=== PATIENT | male | born 1945 | race Caucasian/White ===

== ENCOUNTER 2022-08-18 05:06 | Emergency (ER) | payer MEDICARE, OTHER, SELFPAY ==
[2022-08-18 05:07] VITALS: BP 94/57; PULSE 81; RESP 18; TEMP 36.6; O2SAT 95; BMI 40.4
--- NOTE | 2022-08-18 05:18 | ED.VIS.GI ---
HPI HPI - GI History of Present Illness Chief Complaint: GI Bleed Narrative Narrative: 77-year-old male, past medical history of atrial fibrillation on Xarelto, had colonoscopy performed approximately [address] Orona at [facility]. At that time, 2 polyps were removed. He continued his Xarelto through the colonoscopy and afterwards as directed by his surgeon. He states that everything was fine until yesterday. He noticed a small amount of blood mixed with stool. This morning, he had to bloody bowel movements, stating the blood was mixed with mucus. He felt lightheaded yesterday. He took his blood pressure and it was low in the 80s systolically. He denies any chest pain or shortness of breath. He denies other bleeding diathesis. He states that this is happened to him previously with his last 2 colonoscopies. He had GI bleeding, and he was admitted and spent 3 days at [facility] where he continued his Xarelto, but only ate and drink clear liquids until the bleeding stopped. [facility] Medical History (Updated 08/18/22 @ 06:43 by Yordy Braun MD) Atrial fibrillation Hypertension Prostate cancer Home Medications allopurinol 200 mg tablet 200 mg PO DAILY 08/18/22 [History Last Taken Unknown] bisoprolol fumarate 5 mg tablet 2.5 mg PO DAILY 08/18/22 [History Last Taken Unknown] cholecalciferol (vitamin D3) 125 mcg (5,000 unit) tablet 125 mcg PO DAILY 08/18/22 [History Last Taken Unknown] doxazosin 4 mg tablet 6 mg PO QHS 08/18/22 [History Last Taken Unknown] fluticasone furoate 27.5 mcg/actuation nasal spray,suspension 2 spray intranasal DAILY 08/18/22 [History Last Taken Unknown] hydrochlorothiazide 50 mg tablet 50 mg PO DAILY 08/18/22 [History Last Taken Unknown] losartan 100 mg tablet 100 mg PO BID 08/18/22 [History Last Taken Unknown] multivitamin 1 tab PO DAILY 08/18/22 [History Last Taken Unknown] pravastatin 40 mg tablet 40 mg PO DAILY 08/18/22 [History Last Taken Unknown] propylene glycol 0.6 % eye drops (Systane Complete) 1 drp EACH EYE TID 08/18/22 [History Last Taken Unknown] rivaroxaban 20 mg tablet (Xarelto) 20 mg PO DAILY 08/18/22 [History Last Taken Unknown] vitamin B12 2,500 mcg-folic acid 400 mcg disintegrating tablet 1 tab PO DAILY 08/18/22 [History Last Taken Unknown] Allergy/AdvReac Type Severity Reaction Status Date / Time carbamazepine Allergy Swelling Verified 08/18/22 05:18 carbuterol Allergy Swelling Verified 08/18/22 05:18 clonidine Allergy Swelling Verified 08/18/22 05:18 Environmental Allergies: Allergy Other Verified 08/18/22 05:18 Uncoded [seasonal] nifedipine Allergy Swelling Verified 08/18/22 05:18 amlodipine AdvReac Other Verified 08/18/22 05:18 Social History Smoking Status: Never smoker ROS ROS ED ROS Narrative Constitutional: No fever, no chills. HEENT: No sore throat. No neck pain. No loss of vision. No rhinorrhea. Cardiovascular: No chest pain. No palpitations. No pedal edema. Respiratory: No cough, no shortness of breath. Abdominal: No abdominal pain. No nausea. No vomiting. Positive bloody bowel movements. Genitourinary: No dysuria. No hematuria. Musculoskeletal: No myalgias. No arthralgias. Neurologic: No headaches. No dizziness. Positive lightheadedness. Skin: No rash. No change in color. Psychiatric: No depression. No anxiety. EXAM Physical Exam Narrative Exam Narrative: Afebrile. Vital signs noted. HEENT: Normocephalic. Atraumatic. PERRL, EOMI. Neck soft and supple. No point tenderness or step off. Cardiovascular: Regular rate and rhythm. No murmurs, rubs, or gallops appreciated. Respiratory: No tachypnea. Lungs clear to auscultation bilaterally. Gastrointestinal: Abdomen soft, nontender, with normoactive bowel sounds. No rebound or guarding. Neurological: Awake. Alert. Nonfocal, nonlateralizing. Skin: No rash. Normal color. No appreciable pallor of palms or central cyanosis. Musculoskeletal: No pedal edema. Full range of motion extremities. Const Vital Signs: 08/18/22 05:07 08/18/22 06:39 Temperature 97.9 F Temperature Source Temporal Pulse Rate 81 70 Respiratory Rate 18 16 Blood Pressure 94/57 L 107/62 Blood Pressure Mean 69 77 Pulse Ox 95 Oxygen Delivery Method Room Air MDM MDM MDM Narrative Medical decision making narrative: Patient has a systolic blood pressure of 94/57. He will be bolused normal saline 1 L intravenously, but I am hesitant to give large aliquots of IV fluids in the event that his hemoglobin is low and requires transfusion. I will check a CBC to check for severe anemia, and his electrolytes, mainly looking at BUN and creatinine and its ratio to look for GI bleeding. He is not actively hemorrhaging. Type and screen was also ordered. I do not want to perform orthostatics as he is already hypotensive. I reviewed the patient's laboratory work, he has a normal white count of 5.8, hemoglobin is 11.0, only slightly anemic, no prior with which to compare. Hematocrit 33.1 with platelet count normal at 161. In review of his CMP, chloride is high at 108 with a BUN of 49 and a creatinine of 2.36. I am unsure if this is chronic kidney injury or acute. Blood type is B+. I discussed the patient with Dr. Gutierrez with general surgery who agrees that the patient would benefit more from seeing his surgeon at [facility], Dr. Orona. I was able to speak with Dr. Orona who states that patient has had creatinine ranging from 1.5-2.2 so this is more of a chronic kidney injury. After the bolus of normal saline, systolic blood pressure is 107. I do feel he may be dehydrated and would benefit from further IV fluids. These will be run prior to transportation. I will obtain a lactic acid because of his hypotension, but I am not concerned for sepsis as he has a normal white count, and is afebrile, and is not tachycardic. He is not meeting any SIRS criteria. Patient has been accepted at [facility]. Disposition is transferred in stable condition. History & Record Review Discussion w/independent historian: Patient and Family Additional record(s) reviewed:: No prior records Lab Data Attestation: I reviewed the patient's lab results. Labs: Laboratory Results - last 24 hr 08/18/22 08/18/22 08/18/22 05:35 05:35 05:35 WBC 5.8 RBC 3.30 L Hgb 11.0 L Hct 33.1 L MCV 100.3 H MCH 33.3 H MCHC 33.2 RDW Std Deviation 50.0 H RDW Coeff of Nisreen 13.6 Plt Count 161 MPV 10.0 Immature Gran % (Auto) 0.500 Neut % (Auto) 64.8 Lymph % (Auto) 24.0 Wy[place] % (Auto) 8.0 Eos % (Auto) 2.4 Baso % (Auto) 0.3 Absolute Neuts (auto) 3.7 Absolute Lymphs (auto) 1.39 Nucleated RBC % 0 Sodium 141 Potassium 3.6 Chloride 108 H Carbon Dioxide 26.0 Anion Gap 7 BUN 49 H Creatinine 2.36 H Estim Creat Clear Calc 29.23 Est GFR (MDRD) Af Amer 35 L Est GFR (MDRD) Non-Af 29 L BUN/Creatinine Ratio 20.8 H Glucose 198 H Calcium 9.1 Total Bilirubin 0.60 AST 19 ALT 23 Alkaline Phosphatase 58 Total Protein 6.1 L Albumin 3.3 Globulin 2.8 Albumin/Globulin Ratio 1.2 Blood Type B POSITIVE Antibody Screen NEGATIVE Discharge Plan Triage Chief Complaint: GI Bleed ED Provider: Yordy Braun Dx/Rx/DC Orders Clinical Impression: Lower GI bleed, Dehydration, Current use of care home anticoagulation, Hypotension, Chronic kidney disease Prescriptions: No Action hydrochlorothiazide 50 mg Tablet 50 mg PO DAILY bisoprolol fumarate 5 mg Tablet 2.5 mg PO DAILY doxazosin 4 mg Tablet 6 mg PO QHS losartan 100 mg Tablet 100 mg PO BID fluticasone furoate 27.5 mcg/actuation Mccormick,Suspension 2 spray INTRANASAL DAILY Rx Instructions: into each nostril cholecalciferol (vitamin D3) 125 mcg (5,000 unit) Tablet 125 mcg PO DAILY allopurinol 200 mg Tablet 200 mg PO DAILY multivitamin Tablet 1 tab PO DAILY pravastatin 40 mg Tablet 40 mg PO DAILY Systane Complete 0.6 % Drops 1 drp EACH EYE TID Xarelto 20 mg Tablet 20 mg PO DAILY Rx Instructions: must administer with evening meal vitamin [id number] acid 2,500-400 mcg Tablet,Disintegrating 1 tab PO DAILY Primary Care Provider: Nicholas Burciaga Referrals: Nicholas Burciaga MD [Primary Care Provider] - Disposition Disposition: Acute Care Hospital Discharge Location: [facility]
[2022-08-18] MEDS: 0.9% Normal Saline 1,000 ML 999 ML IV ×3 (05:38→08:25)
[2022-08-18 05:42] LABS: Absolute Lymphocyte Count 1.39 X10^3/uL (0.83-4.51); Absolute Neutrophil Count 3.7 X10^3/uL (2.0-7.7); Basophil# 0.02 X10^3/uL; Basophil% 0.3 % (0-1); Eosinophil# 0.14 X10^3/uL; Eosinophils% 2.4 % (0-5); Hematocrit 33.1 % (40-54); Lymphocyte # 1.39 X10^3/ul (0.83-4.51); Mean Corp Hgb Conc 33.2 g/dL (32-36); Mean Corpuscular Hgb 33.3 pg (27.0-32.0); Mean Corpuscular Volume 100.3 fL (80-94); Monocyte# 0.46 X10^3/uL; NRBC Flagged by Analyzer 0 % (0-5); Neutrophil # 3.74 X10^3/uL (2.7-7.7); Neutrophil % 64.8 % (47-70); Platelet Count 161 K/mm3 (150-450); RBC Distribution Width CV 13.6 % (11.6-14.6); White Blood Count 5.8 K/mm3 (4.4-11.0)
[2022-08-18 06:00] LABS: ALB/GLOB Ratio 1.2 RATIO (0.9-2.4); AST(SGOT) 19 U/L (15-37); Alanine Aminotransfer ALT/SGPT 23 U/L (16-61); Albumin, Serum 3.3 g/dL (3.2-5.0); Alkaline Phosphatase 58 U/L (45-117); Anion Gap 7 (5-15); BUN 49 mg/dL (7-18); BUN/Creat Ratio 20.8 RATIO (10-20); Calcium,Total 9.1 mg/dL (8.5-10.1); Chloride 108 mmol/L (98-107); Creatinine, Serum 2.36 mg/dL (0.70-1.30); EST Glomerular Filtration Rate 29 mL/min (>60); Est Glom Filt Rate - Afr Amer 35 mL/min (>60); Estimated Creatinine Clearance 29.23 ml/min; Globulin 2.8 g/dL (2.2-4.2); Glucose 198 mg/dL (74-106); Potassium 3.6 mmol/L (3.5-5.1); Protein, Total 6.1 g/dL (6.4-8.2); Sodium Level 141 mmol/L (136-145)
[2022-08-18 06:39] VITALS: BP 107/62; PULSE 70; RESP 16
[2022-08-18 06:49] LABS: Lactic Acid 1.5 mmol/L (0.4-1.9)
--- NOTE | 2022-08-18 07:22 | NURSING ---
08/18/22@ 0700- Patient up to bathroom. Hat placed in toilet to obtain stool sample. Patient removed hat from toilet because he couldn't go to the bathroom in the hat. Education provided. Will attempt to obtain stool sample with next bathroom visit.
[2022-08-18 08:00] VITALS: BP 93/48; PULSE 69; RESP 16; O2SAT 95
--- NOTE | 2022-08-18 08:18 | NURSING ---
[facility] 3S BED 311 BED 1 NURSE TO NURSE [phone]
[2022-08-18 08:45] VITALS: BP 93/48; PULSE 63; RESP 20; TEMP 36.8; O2SAT 95
--- NOTE | 2022-08-18 08:45 | NURSING ---
CALLED [facility], ETA IS 30 MIN
--- NOTE | 2022-08-18 09:51 | NURSING ---
08/18/22@ 0900- Report attempted x2 without answer. Will try again shortly.
== END 2022-08-18 09:13 | disposition short-term general hospital (02) ==
PROVIDERS: Emergency Provider Emergency Medicine; PCP Family Medicine; Visit Provider Emergency Medicine
DX: K92.2 Gastrointestinal hemorrhage, unspecified (principal); I48.91 Unspecified atrial fibrillation; N18.9 Chronic kidney disease, unspecified; I95.9 Hypotension, unspecified; E86.0 Dehydration; Z79.01 Long term (current) use of anticoagulants; I12.9 Hypertensive chronic kidney disease with stage 1 through stage 4 chronic kidney disease, or unspecified chronic kidney disease
CPT/HCPCS: 80053; 83605; 85025; 86850; 86900; 86901; 87811; 96360; 96361; 99285; J7030; A4216

== ENCOUNTER → 2022-12-03 | Outpatient (CLI) | payer MEDICARE, OTHER, SELFPAY ==
--- NOTE | 2022-12-03 08:17 | MRI_ITS ---
STUDY: MR PELVIS WITH AND WITHOUT CONTRAST (PROSTATE) REASON FOR EXAM: Male, 77 years old. Elevated PSA TECHNIQUE: Standardized multiparametric prostate MRI with T1, T2, DWI/ADC sequences were obtained in 3 orthogonal planes, and dynamic contrast enhancement sequences. 25 ml of clariscan contrast material was administered intravenously for the contrast portion of the examination. COMPARISON: None. FINDINGS: The prostate volume measures 75.8 mm3. The contours of the prostate gland are smooth. There is not mass effect on the bladder base. The transition zone is heterogenous. PI-RADS DWI score 3 - Focal mildly hypointense on ADC and isointense/mildly hyperintense on high b-value DWI, but correlating to hyperintense T2 BPH nodule. PI-RADS T2W score 2 - A mostly encapsulated nodule OR a homogeneous circumscribed nodule without encapsulation (atypical nodule) or a homogeneous mildly hypointense area between nodules.. Contrast enhancement no early or contemporaneous enhancement; or diffuse multifocal enhancement NOT corresponding to a focal finding on T2W and/or DWI or focal ehancement responding to a lesion demonstrating features of BPH onT2WI (including features of extruded BPH in the PZ). The peripheral zone is homogenous. PI-RADS DWI score 2 - Linear/wedge shaped hypointense on ADC and/or linear/wedge shaped hyperintense on high b-value DWI. PI-RADS T2W score 2 - Linear, wedge-shaped, or diffuse mild hypointensity, usually with indistinct margin. Contrast enhancement no early or contemporaneous enhancement; or diffuse multifocal enhancement NOT corresponding to a focal finding on T2W and/or DWI or focal enhancement responding to a lesion demonstrating features of BPH onT2WI (including features of extruded BPH in the PZ). The seminal vesicles demonstrate normal margins and T2 signal pattern. No mass lesion or invasion depicted. The rectoprostatic angles are normal. Urinary bladder is normal without wall thickening. The vascular structures of the are normal. The visualized hollow viscus structures are normal. Left inguinal hernia containing fat is partially visualized. No bone marrow edema or mass lesion depicted. MRI/Pelvis W/WO Contrast IMPRESSION: 1. PIRADS v2.1 2019 -- 2 - Low (clinically significant cancer is unlikely). Electronically Signed: Flaco Davalos (Brooks), at 16:32 EDT Reading Location ID and State: [facility] / [place] , Service support ,
[2022-12-03 08:44] LABS: CREATININE FINGERSTICK 1.2 mg/dL (0.70-1.30); EGFR FINGERSTICK > 60.0000 mL/min (>60)
== END | disposition home or self-care (01) ==
PROVIDERS: PCP Family Medicine; Referring Provider Urology; Visit Provider Urology
DX: C61 Malignant neoplasm of prostate (principal); R97.20 Elevated prostate specific antigen [PSA]
CPT/HCPCS: 72197; A9575